=== PATIENT | male | born 1995 | race Caucasian/White ===

== ENCOUNTER 2019-07-16 03:47 | Emergency (ER) | payer BC, OTHER ==
[2019-07-16 10:11] LABS: HIV (1/2) Antibody/Antigen Non-Reactive (NonReactive); HIV 1/2 INDEX 0.12 S/CO (<1.00); Hep C IgG Ab Non-Reactive (NonReactive); Hep C Index 0.05 S/CO (0-0.79)
[2019-07-16 10:14] LABS: Hep B Surf AB Reactive (NonReactive)
== END 2019-07-16 04:25 | disposition home or self-care (01) ==
LOC: SCSER 03:47
DX: Z77.21 Contact with and (suspected) exposure to potentially hazardous body fluids (principal)
CPT/HCPCS: 86706; 86803; 87389; 99283

== ENCOUNTER 2024-03-23 09:51 | Outpatient (CLI) | payer OTHER | END 2024-03-23 09:52 | disposition home or self-care (01) | LOC: SCSMRI 09:51 | PROVIDERS: ATTEND Orthopaedic Surgery | DX: M79.89 Other specified soft tissue disorders (principal) ==